=== PATIENT | female | born 1995 | race Hispanic/Latino ===

== ENCOUNTER 2018-11-11 07:46 | Outpatient (CLI) | payer OTHER ==
--- NOTE | 2018-11-11 08:56 | ULT ---
EXAM: OB ultrasound COMPARISON: Intrauterine gestation. Evaluate anatomy and screening evaluation for anomalies. HISTORY: female. Evaluate size, dates, and anatomy. TECHNIQUE: Multiplanar grayscale and color Doppler transabdominal sonographic images are obtained. FINDINGS: There is a single intrauterine gestation in cephalic presentation. Cardiac Doppler demonstr ates heart tones with a heart rate of 134 beats per minute. The placenta is located anteriorly without evidence of placenta previa. The amniotic fluid index is diminished measuring 6.67 cm. The cervix is mostly obscured due to shadowing from head. biometry measurements: BPD 9.53 cm -- 39 weeks HC 33.23 cm -- 38 weeks AC 35.5 cm -- 39 weeks 3 days FL 7.25 cm -- 37 weeks 1 day The estimated gestational age by ultrasound is 38 weeks 3 days with an ALF on11/22/2018. Gestational a ge by the last menstrual period is 38 weeks 5 days. The estimated weight by ultrasound is 3564 g (7 pounds, 14 ounces). This represents 67 percenti le for weight. A 4 chambered heart is visualized. The cerebellum is not well seen due to ossification of head and positioning of head. The visualized portions of the spine, kidneys, and urinary bladder demonstrate a normal sonographic appearance. The cord insertion is difficult to delineate due to positioning of the fetus, but no gross abnormality is appreciated in the region of the cord insertion. A three-vessel cord is visualized. No anomalies are seen. IMPRESSION: 1. Decrease in amniotic fluid with amniotic fluid index of 6.67 cm. 2. Single intrauterine gestation in cephalic presentation with heart tones documented. Gestatio nal age by ultrasound is 38 weeks and 3 days with ALF on 11/22/2018. 3. Estimated weight is 3564 g (7 pounds, 14 ounces).
== END 2018-11-11 07:47 | disposition home or self-care (01) ==
LOC: BICULT 07:46
PROVIDERS: ATTEND Student in an Organized Health Care Education/Training Program
DX: Z36.0 Encounter for antenatal screening for chromosomal anomalies (principal); Z3A.38 38 weeks gestation of pregnancy
CPT/HCPCS: 76805

== ENCOUNTER 2018-11-11 23:01 | Inpatient (IN) | payer OTHER, SELFPAY ==
[2018-11-11] MEDS ORDERED: Promethazine HCl 25 MG/ML VIAL IM PRN (23:49)
[2018-11-11] MEDS ORDERED: NS / Oxytocin 40 units/1000ml 1,000 ML IV PRN (23:49)
[2018-11-11] MEDS ORDERED: Ondansetron PF 4 MG/2 ML Vial IVP PRN (23:49)
[2018-11-11] MEDS ORDERED: Lidocaine 1% (PF) 30 ML VIAL SC PRN (23:49)
[2018-11-11] MEDS ORDERED: Butorphanol Tartrate 1 MG/ML VIAL SLOW IVP PRN (23:49)
[2018-11-11] MEDS ORDERED: Acetaminophen 500 MG TAB PO PRN (23:49)
[2018-11-11] MEDS ORDERED: hydrALAZINE 20 MG/ML VIAL SLOW IVP PRN (23:49)
[2018-11-11 23:51] VITALS: BMI 36.3
[2018-11-11] MEDS ORDERED: Lactated Ringer's 1,000 ML IV SCH (23:59)
--- NOTE | 2018-11-12 00:02 | PDOC.LDHP ---
Labor and Delivery H&P Chief complaint: contractions, loss of fluid HPI: Patient is a 23yo @ 38.6 wks by 2T u/s presenting today after reportedly having SROM around 9-10pm this Allergies/Adverse Reactions: Allergies Allergy/AdvReac Type Severity Reaction Status Date / Time No Known Allergies Allergy Unverified 11/11/18 23:31
[2018-11-12 00:24] LABS: Hemoglobin 11.5 g/dL (12.0-16.0); Mean Corpuscular HGB CONC 34.5 g/dL (32.0-36.0); Mean Corpuscular Hemoglobin 30.8 pg (27.0-31.0); Mean Corpuscular Volume 89.2 fL (78.0-98.0); Platelet Count 281 thou/uL (130-400); RBC Distribution Width 13.4 % (11.5-14.5); Red Blood Cell (RBC) Count 3.72 mill/uL (4.20-5.40); White Blood Cell (WBC) Count 9.4 thou/uL (4.8-10.8)
--- NOTE | 2018-11-12 00:37 | PDOC.FPROB ---
FMR OB H&P: Medications - Current Home Medications: Medication Instructions Recorded Confirmed Type No Known 11/11/18 11/11/18 History Allergies/Adverse Reactions: Allergies Allergy/AdvReac Type Severity Reaction Status Date / Time No Known Allergies Allergy Unverified 11/11/18 23:31 FMR OB H&P: Vital Signs - Maternal Vital signs: Vital Signs - First Documented Temp Pulse Resp BP Pulse Ox 98.5 F 62 18 111/57 L 100 11/11/18 23:26 11/11/18 23:26 11/11/18 23:26 11/11/18 23:26 11/11/18 23:26 FMR OB H&P: Results - Labs Lab results: Laboratory Results - last 24 hr 11/12/18 00:11 WBC 9.4 RBC 3.72 L Hgb 11.5 L Hct 33.2 L MCV 89.2 MCH 30.8 MCHC 34.5 RDW 13.4 Plt Count 281 MPV 7.0 L FMR OB H&P: A/P - Problem List (1) Current Visit: Yes Status: Acute (2) Iron deficiency anemia Current Visit: Yes Status: Acute Code(s): D50.9 - IRON DEFICIENCY ANEMIA, UNSPECIFIED (3) History of hydrocephalus Current Visit: Yes Status: Acute Code(s): Z86.69 - PERSONAL HISTORY OF DIS OF THE NERVOUS SYS AND SENSE ORGANS Discussion: Date/Time: 11/12/1834 PCP: [facility] HPI: Patient comes in for rupture of membranes which started at about 10pm. She complains of contractions every 2-3 minutes. Denies N/V, fevers, chills, or sweats. She affirms movement, denies bleeding/discharge. Denies MELISSA, visual changes, SOB, or swelling. History: OB hx: at 36 wks in [place], shortly after delivery 2/2 hydrocephalous PMH: depression, iron def anemia PSH: cholecystectomy, hernia repair Meds: PNV, iron All: NKDA Soc Hx: denies smoking, alcohol, drugs Fam Hx: 1st child with hydrocephalous GBS: neg Blood type: O+ Ab screen:neg HIV: neg RPR: neg Hep B: neg Rubella: immune Quad Screen: neg 1 hr GTT: 90 GC/CT: neg PAP: NILM REVIEW OF SYSTEMS: Gen: no fever, chills, or sweats Neuro: no numbness/tingling, no weakness, denies headache ENT: denies congestion Eyes: no visual changes Resp: denies cough, no production, no SOB, no wheeze Card: denies chest pain, no palpitations GI: denies nausea, vomiting, diarrhea : no dysuria, no hematuria Skin: no rash, no erythema Psych: denies hx anxiety/depression Vitals: T: 98.7 R: 18 BP: 111/57 P:92 98% on RA PHYSICAL EXAMINATION: General: NAD, alert and oriented x3 HEENT: EOMI, normal sclera Neck: Supple. Full ROM. Heart/Cardiovascular System: RRR, Cap refill < 3 seconds, no rub, no murmur Lungs/Respiratory System: clear to auscultation bilaterally. No increased work of breathing. Room air. Abdomen/Gastro-Intestinal System: no abdominal tenderness, normal bowel sounds, Gravid Extremities: Warm extremities. Trace edema bilaterally Neuro: No gross deficits appreciated Psychiatry: Awake, Alert and cooperative with exam Skin: no lesions, no rashes Musculoskeletal: Full ROM A/P: This is a 23 yo at 38.5 wks by 2T US here for SROM and contractions FHT: 140 baseline, mod variability, no decels, accels present [place]: q2-3 min # - Obvious SROM - 3/50/-2 at 1145 - Expectant mgmt. - GBS neg # Iron def anemia - Last hgb 10.7 - Normal electrophoresis, ferritin 9 # Hx hydrocephalous - First child shortly after - Patient missed [facility] visits x2-3 based on review of chart - US 11/11 at [place] shows ant placenta, hadlock 67%, no noted abnormalities on structures which could be visualized Addendum - Attending - Attending Attestation Date/Time: 11/12/18 6715 I personally evaluated the patient and discussed the management with Dr. Escobedo. I agree with the History, Examination, Assessment and Plan documented above with any addition or exceptions noted below.
[2018-11-12 01:02] LABS: HBSAg Index 0.14 S/CO (0-0.99); Hep B Surf Ag Non-Reactive S/CO (NonReactive)
--- NOTE | 2018-11-12 01:34 | PDOC.LDPN ---
Labor & Delivery Progress Note - Subjective Subjective: painful contractions - Objective Vital signs reviewed and normal: yes General: NAD, resting - Assessment (1) Current Visit: Yes Status: Acute (2) Iron deficiency anemia Code(s): D50.9 - IRON DEFICIENCY ANEMIA, UNSPECIFIED Current Visit: Yes Status: Acute (3) History of hydrocephalus Code(s): Z86.69 - PERSONAL HISTORY OF DIS OF THE NERVOUS SYS AND SENSE ORGANS Current Visit: Yes Status: Acute -: This is a 23 yo at 38.5 wks by 2T US here for SROM and contractions FHT: 140 baseline, mod variability, no decels, accels present [place]: q2-3 min # - Obvious SROM - 3/50/-2 at 1145 6/90/-2 at 0130 - Expectant mgmt. - GBS neg # Iron def anemia - hgb 11.5 - Normal electrophoresis, ferritin 9 # Hx hydrocephalous - First child shortly after - Patient missed [facility] visits x2-3 based on review of chart - US 11/11 at [place] shows ant placenta, hadlock 67%, no noted abnormalities on structures which could be visualized
--- NOTE | 2018-11-12 02:37 | PDOC.LDPN ---
Labor & Delivery Progress Note - Subjective Subjective: painful contractions - Objective Vital signs reviewed and normal: yes General: NAD - Assessment (1) Current Visit: Yes Status: Acute (2) Iron deficiency anemia Code(s): D50.9 - IRON DEFICIENCY ANEMIA, UNSPECIFIED Current Visit: Yes Status: Acute (3) History of hydrocephalus Code(s): Z86.69 - PERSONAL HISTORY OF DIS OF THE NERVOUS SYS AND SENSE ORGANS Current Visit: Yes Status: Acute -: This is a 23 yo at 38.5 wks by 2T US here for SROM and contractions FHT: 140 baseline, mod variability, no decels, accels present [place]: q2-3 min # - Obvious SROM - 3/50/-2 at 1145 6/90/-2 at 0130 9.5/90/0 at 0230 - Expectant mgmt. - GBS neg # Iron def anemia - hgb 11.5 - Normal electrophoresis, ferritin 9 # Hx hydrocephalous - First child shortly after - Patient missed [facility] visits x2-3 based on review of chart - US 11/11 at [place] shows ant placenta, hadlock 67%, no noted abnormalities on structures which could be visualized
[2018-11-12] MEDS: NS / Oxytocin 40 units/1000ml 1,000 ML IV SCH ×2 (03:20→05:19)
--- NOTE | 2018-11-12 04:11 | PDOC.OPDEL ---
OB Operative/Delivery Note - Additional Findings/Plan Compilations/Other Findings: Delivering Physician: Dr. Rod Shaffer, Dr. Carolyne Escobedo Attending: Dr. Adan Inman Procedure: Spontaneous Vaginal Delivery Anesthesia: Local for Repair EBL: 400 ml Pre-op Diagnosis: 1. Term intrauterine in labor 2. Late to [facility], received care in [place] 3. Hx of baby hydrocephalus, did not attend appointments with M 4. Iron deficiency anemia 5. Depression Post-op Diagnosis: 1. Term intrauterine , delivered 2. same as above Indications: A 23y/o female presents in active labor Delivery Note: This is 23yo F @ 38.6wks who delivered a viable M at 0313. Following an uneventful antepartum course, a vigorous male was delivered over an intact perineum in the OA position. Anterior Shoulder and then remainder of the body delivered. No nuchal cord. The head was held down and mouth and nares were bulb suctioned. Cord clamped and cut and cord blood collected. Placenta, with velamentous insertion, delivered intact with a 3 vessel cord noted. Fundal massage was performed and the fundus was firm. The cervix and vagina were inspected and a second degree vaginal laceration was noted and repaired with 3-[address] in the usual fashion with good approximation and hemostasis after a local anesthetic was injected at site. went to nursery in good condition for routine care. Apgars were 9 /9 at 1 & 5 minutes, respectively. Patient tolerated delivery well and went to after routine recovery/care. Addendum - Attending - Attending Attestation Date/Time: 11/12/18 1791 I personally supervised and assisted with delivery and vaginal repair.
[2018-11-12] MEDS ORDERED: Lanolin Ointment 7 GM TUBE TOP PRN (04:23)
[2018-11-12] MEDS ORDERED: Adacel (T-DAP) 0.5 ML SYRINGE IM ONE (04:23)
[2018-11-12] MEDS ORDERED: Bisacodyl 10 MG SUPP PR PRN (04:23)
[2018-11-12] MEDS ORDERED: Preparation H Ointment 28 GM TUBE PR PRN (04:23)
[2018-11-12] MEDS ORDERED: Milk Of Magnesia 30 ML UDCUP PO PRN (04:23)
[2018-11-12] MEDS ORDERED: hydrALAZINE 20 MG/ML VIAL SLOW IVP PRN (04:23)
[2018-11-12 04:28] LABS: Syphilis Antibody Nonreactive (Nonreactive); Syphilis Antibody Index 0.03 S/CO (<1.00 Non-Reactive)
[2018-11-12] MEDS: Ibuprofen 800 MG TAB PO SCH ×3 (05:21→21:30)
[2018-11-12] MEDS: Ferrous Sulfate 325 MG TAB PO SCH ×2 (09:52→17:26)
[2018-11-12] MEDS: Docusate Calcium (SURFAK) 240 MG CAP PO SCH ×2 (09:59→21:30)
[2018-11-12] MEDS ORDERED: Sodium Chloride 0.9% 10 ML ONE (10:23)
[2018-11-13] MEDS: Ibuprofen 800 MG TAB PO SCH (05:48)
--- NOTE | 2018-11-13 06:23 | PDOC.PP ---
Post Progress Note Post Day #: 1 Subjective: Arnie Hernandez seen at bedside this morning. She delivered a TAGA M via at 38.6 wks on 11/12 at 0313. She is PPD 1. She has no complaints, pain is well controlled. She denies any fever, chills, chest pain, dyspnea, n/v. Bleeding slightly about the same as a period. PO intake tolerated: yes Flatus: yes Ambulation: yes Vital Signs (12 hours) Temp Pulse Resp BP Pulse Ox 11/13/18 05:48 97.7 F 87 18 106/60 97 11/13/18 00:00 97.8 F 102 H 18 98/50 L 97 11/12/18 19:40 97.7 F 92 18 102/62 99 Weight Weight 84.368 kg - Physical Examination General: NAD Cardiovascular: no m/r/g, RRR Respiratory: clear to auscultation bilaterally, non-labored breathing Abdominal: + bowel sounds, lochia, no distention, appropriately TTP Neurological: no gross focal deficits Psychiatric: A&Ox3, normal affect Result Diagrams: 11/12/18 00:11 Additional Labs: Post Labs Blood Type O POSITIVE 11/12/18 00:46 Hep Bs Antigen Non-Reactive S/CO (NonReactive) 11/12/18 00:11 (1) Term delivered Code(s): O80 - ENCOUNTER FOR FULL-TERM UNCOMPLICATED DELIVERY Status: Acute (2) History of hydrocephalus Code(s): Z86.69 - PERSONAL HISTORY OF DIS OF THE NERVOUS SYS AND SENSE ORGANS Status: Acute (3) Iron deficiency anemia Code(s): D50.9 - IRON DEFICIENCY ANEMIA, UNSPECIFIED Status: Acute - Assessment/Plan 1) Term , delivered - PPD 1, at 0313 on 11/12/18 - continue routine post care - ibuprofen and tylenol have provided adequate pain control 2) Iron def anemia - iron supplementation with colace - Hg was 11.5 prior to delivery - asymptomatic, VSS Dispo: Likely d/c home with baby tomorrow Addendum - Attending - Attending Attestation Date/Time: 11/13/18 7604 I personally evaluated the patient and discussed the management with Dr. Reid. I agree with the History, Examination, Assessment and Plan documented above with any addition or exceptions noted below.
[2018-11-13 09:32] VITALS: BP 104/67; TEMP 97.2
== END 2018-11-13 14:10 | disposition home or self-care (01) | DRG 807 ==
LOC: L&D/OP 23:01 → L&D 11-12 02:30 → 3SE 11-12 06:24
PROVIDERS: ADMIT Family Medicine; ATTEND Family Medicine
PROC: 10E0XZZ Delivery of Products of Conception, External Approach (ICD-10-PCS; principal; 2018-11-12)
PROC: 0KQM0ZZ Repair Perineum Muscle, Open Approach (ICD-10-PCS; 2018-11-12)
DX: O99.02 Anemia complicating childbirth (principal); Z37.0 Single live birth; D50.9 Iron deficiency anemia, unspecified; O70.1 Second degree perineal laceration during delivery; O43.123 Velamentous insertion of umbilical cord, third trimester; Z3A.38 38 weeks gestation of pregnancy
CPT/HCPCS: 36415; 76805; 85027; 86780; 86850; 86900; 86901; 87340; 88307; 99285; J2001